=== PATIENT | female | born 1955 | race Two or more races ===

== ENCOUNTER 2023-08-07 12:59 | Inpatient (IN) | payer OTHER ==
[~2023-08-07] VITALS: Ht 152.4 cm; Wt 45.4 kg
[2023-08-07] MEDS ORDERED: CHLORTHALIDONE25 MG PO (14:03)
[2023-08-07] MEDS ORDERED: METOPROLOL SUC100 MG PO (14:03)
[2023-08-07] MEDS ORDERED: CELLCEPT250 MG PO (14:03)
[2023-08-07] MEDS ORDERED: ATORVASTATIN CA20 MG PO (14:04)
[2023-08-07 15:34] LABS: HEMATOCRIT 35.3 % (36.0-45.00); HEMOGLOBIN 11.8 g/dL (12.0-15.00); MEAN CELL VOLUME 84.6 fL (80.00-100.00); MEAN CORPUSCULAR HEMOGLOBIN 28.3 pg (27.00-32.0); MEAN CORPUSCULAR HGB CONC 33.5 g/dl (32.0-36.0); RED BLOOD COUNT 4.18 M/uL (4.00-6.00); RED CELL DISTRIBUTION WIDTH 14.7 % (11.5-14.5)
[2023-08-07 15:36] LABS: PLATELET COUNT 107 K/uL (150-450)
[2023-08-07 15:56] LABS: CALCIUM 8.6 mg/dL (8.5-10.1); CREATININE SERUM 1.49 mg/dL (0.55-1.02); GFR 34.6
[2023-08-07 16:03] LABS: POTASSIUM 2.46 mEq/L (3.5-5.1)
[2023-08-07 18:12] LABS: MAGNESIUM 2.2 mg/dL (1.8-2.4); PHOSPHOROUS 3.4 mg/dL (2.5-4.9)
[2023-08-07 20:31] LABS: PH,URINE 5.5 (5.0-8.0); URINE APPEARANCE Cloudy; URINE BILIRRUBIN Negative (NEGATIVE); URINE BLOOD Large; URINE COLOR Yellow; URINE GLUCOSE Negative (NEGATIVE); URINE LEUKOCYTE Negative; URINE NITRATE Negative; URINE PROTEIN 30 (NEGATIVE); URINE UROBILINOGEN 0.2 E.U./dl
[2023-08-07 20:35] LABS: URINE BACTERIA 15.1 uL (0.0-1933); URINE EPITHELIAL CELLS 17.1 uL (0.0-38.8); URINE RBC 37.3 uL (0.0-20.8); URINE WBC 7.4 uL (0.0-23.2)
[2023-08-07 20:45] LABS: URINE CRYSTALS FEW /HPF; URINE MUCUS SCANT
[2023-08-08 01:37] LABS: INR 1.05; PARTIAL THROMBOPLASTIN TIME 31.4 SECONDS (22.0-34.0)
[2023-08-08 08:21] LABS: HEMATOCRIT 33.4 % (36.0-45.00); HEMOGLOBIN 11.2 g/dL (12.0-15.00); MEAN CELL VOLUME 84.9 fL (80.00-100.00); MEAN CORPUSCULAR HEMOGLOBIN 28.5 pg (27.00-32.0); MEAN CORPUSCULAR HGB CONC 33.6 g/dl (32.0-36.0); RED BLOOD COUNT 3.94 M/uL (4.00-6.00); RED CELL DISTRIBUTION WIDTH 15.1 % (11.5-14.5)
[2023-08-08 08:29] LABS: ABG PH 7.489 (7.35-7.45); ABG PO2 81.2 mmHg (80-100); ABG pCO2 31.9 mmHg (35-45); BASE EXCESS 1.2 mmol/l; BICARBONATE 23.7 mmol/l (23-25); SaO2 96.9 %; Tco2 24.7 mmol/l; allen test SATISFACTORY; o2 32 %; puncture site RADIAL RIGHT
[2023-08-08 09:06] LABS: BILIRUBIN TOTAL 1.09 mg/dL (0.3-1.2); CALCIUM 7.6 mg/dL (8.5-10.1); CREATININE SERUM 0.8 mg/dL (0.55-1.02); GFR 70.91; GLOBULINA 3.5 G/DL (2.4-3.5); TOTAL PROTEIN 5.5 gm/dL (6.4-8.2)
[2023-08-08 09:18] LABS: PLATELET COUNT 85 K/uL (150-450)
[2023-08-08 09:51] LABS: POTASSIUM 2.36 mEq/L (3.5-5.1)
[2023-08-09 08:36] LABS: HEMATOCRIT 30.7 % (36.0-45.00); HEMOGLOBIN 10.2 g/dL (12.0-15.00); MEAN CELL VOLUME 84.3 fL (80.00-100.00); MEAN CORPUSCULAR HEMOGLOBIN 28.1 pg (27.00-32.0); MEAN CORPUSCULAR HGB CONC 33.3 g/dl (32.0-36.0); RED BLOOD COUNT 3.65 M/uL (4.00-6.00); RED CELL DISTRIBUTION WIDTH 15.2 % (11.5-14.5)
[2023-08-09 09:20] LABS: PLATELET COUNT 91 K/uL (150-450)
[2023-08-09 11:14] LABS: CORTISOL 32.84 ug/dl
[2023-08-09 15:12] LABS: CALCIUM 7.7 mg/dL (8.5-10.1); CREATININE SERUM 0.8 mg/dL (0.55-1.02); GFR 70.91
[2023-08-09 15:21] LABS: POTASSIUM 2.27 mEq/L (3.5-5.1)
[2023-08-09 17:54] LABS: ALBUMIN 1.8 gm/dL (3.4-5.0); BILIRUBIN TOTAL 0.53 mg/dL (0.3-1.2); CALCIUM 7.6 mg/dL (8.5-10.1); CREATININE SERUM 0.82 mg/dL (0.55-1.02); GFR 68.92; GLOBULINA 3.6 G/DL (2.4-3.5); MAGNESIUM 1.8 mg/dL (1.8-2.4); TOTAL PROTEIN 5.4 gm/dL (6.4-8.2)
[2023-08-09 18:05] LABS: POTASSIUM 2.07 mEq/L (3.5-5.1)
[2023-08-09 21:49] LABS: PH,URINE 5.5 (5.0-8.0); URINE APPEARANCE Cloudy; URINE BILIRRUBIN Negative (NEGATIVE); URINE BLOOD Moderate; URINE COLOR Dark Yellow; URINE GLUCOSE Negative (NEGATIVE); URINE LEUKOCYTE Negative; URINE NITRATE Negative; URINE UROBILINOGEN 0.2 E.U./dl
[2023-08-09 21:52] LABS: URINE BACTERIA 30.2 uL (0.0-1933); URINE EPITHELIAL CELLS 30.6 uL (0.0-38.8); URINE WBC 12.6 uL (0.0-23.2)
[2023-08-09 22:06] LABS: URINE PROTEIN 100 (NEGATIVE)
[2023-08-09 22:07] LABS: URINE MUCUS SCANT
[2023-08-09 22:08] LABS: EOSINOPHILS,URINE NONE EOS SEEN; URINE CRYSTALS MODERATE /HPF
[2023-08-10 07:29] LABS: HEMATOCRIT 31.8 % (36.0-45.00); HEMOGLOBIN 10.6 g/dL (12.0-15.00); MEAN CELL VOLUME 84.1 fL (80.00-100.00); MEAN CORPUSCULAR HGB CONC 33.3 g/dl (32.0-36.0); RED BLOOD COUNT 3.78 M/uL (4.00-6.00); RED CELL DISTRIBUTION WIDTH 15.2 % (11.5-14.5)
[2023-08-10 07:54] LABS: ALBUMIN 1.7 gm/dL (3.4-5.0); BILIRUBIN TOTAL 0.67 mg/dL (0.3-1.2); CALCIUM 7.6 mg/dL (8.5-10.1); CREATININE SERUM 0.72 mg/dL (0.55-1.02); GFR 80.08; GLOBULINA 3.6 G/DL (2.4-3.5); MAGNESIUM 2.4 mg/dL (1.8-2.4); TOTAL PROTEIN 5.3 gm/dL (6.4-8.2)
[2023-08-10 08:52] LABS: ERYTHROCYTE SEDIMENTATION RATE > 130 mm/hr
[2023-08-10 08:58] LABS: FECAL LEUKOCYTES NEGATIVE (NEGATIVE)
[2023-08-10 09:07] LABS: COMPLEMENT C3 105 mg/dL (82-167); COMPLEMENT C4 12 mg/dL (12-38)
[2023-08-10 09:07] LABS: C-REACTIVE PROTEIN 30.7 MG/DL (0.00-0.29); PHOSPHOROUS 1.4 mg/dL (2.5-4.9); POTASSIUM 2.81 mEq/L (3.5-5.1)
[2023-08-10 09:37] LABS: PLATELET COUNT 93 K/uL (150-450)
[2023-08-10 13:06] LABS: DNA AB DOUBLE STRABDED 21 IU/mL (0-9)
[2023-08-11 16:11] LABS: ALBUMIN 1.4 gm/dL (3.4-5.0); BILIRUBIN TOTAL 0.4 mg/dL (0.3-1.2); BILIRUBIN,CONJUGATED 0.23 mg/dL (0.0-0.2); BILIRUBIN,UNCONJUGATED 0.17 mg/dL (0.0-0.6); CALCIUM 7.4 mg/dL (8.5-10.1); CREATININE SERUM 0.61 mg/dL (0.55-1.02); GFR 96.96; MAGNESIUM 1.7 mg/dL (1.8-2.4); PHOSPHOROUS 2.3 mg/dL (2.5-4.9); POTASSIUM 3.43 mEq/L (3.5-5.1); TOTAL PROTEIN 4.9 gm/dL (6.4-8.2)
[2023-08-12 06:37] LABS: HEMATOCRIT 26.5 % (36.0-45.00); HEMOGLOBIN 9.2 g/dL (12.0-15.00); MEAN CELL VOLUME 83.8 fL (80.00-100.00); MEAN CORPUSCULAR HEMOGLOBIN 29.1 pg (27.00-32.0); MEAN CORPUSCULAR HGB CONC 34.7 g/dl (32.0-36.0); RED BLOOD COUNT 3.17 M/uL (4.00-6.00); RED CELL DISTRIBUTION WIDTH 16.1 % (11.5-14.5)
[2023-08-12 06:57] LABS: PLATELET COUNT 71 K/uL (150-450)
[2023-08-12 07:13] LABS: ERYTHROCYTE SEDIMENTATION RATE 114 mm/hr
[2023-08-12 07:38] LABS: ALBUMIN 1.3 gm/dL (3.4-5.0); BILIRUBIN TOTAL 0.45 mg/dL (0.3-1.2); CALCIUM 7.6 mg/dL (8.5-10.1); CREATININE SERUM 0.62 mg/dL (0.55-1.02); GFR 95.16; MAGNESIUM 1.5 mg/dL (1.8-2.4); PHOSPHOROUS 3.1 mg/dL (2.5-4.9); TOTAL PROTEIN 4.3 gm/dL (6.4-8.2)
[2023-08-12 08:07] LABS: C-REACTIVE PROTEIN 22.6 MG/DL (0.00-0.29); POTASSIUM 2.98 mEq/L (3.5-5.1)
[2023-08-13 07:19] LABS: HEMATOCRIT 26.1 % (36.0-45.00); HEMOGLOBIN 9.1 g/dL (12.0-15.00); MEAN CELL VOLUME 84.1 fL (80.00-100.00); MEAN CORPUSCULAR HEMOGLOBIN 29.2 pg (27.00-32.0); MEAN CORPUSCULAR HGB CONC 34.7 g/dl (32.0-36.0); RED BLOOD COUNT 3.11 M/uL (4.00-6.00); RED CELL DISTRIBUTION WIDTH 16.1 % (11.5-14.5)
[2023-08-13 07:27] LABS: PLATELET COUNT 69 K/uL (150-450)
[2023-08-13 07:39] LABS: ALBUMIN 1.2 gm/dL (3.4-5.0); BILIRUBIN TOTAL 0.5 mg/dL (0.3-1.2); CALCIUM 7.5 mg/dL (8.5-10.1); CREATININE SERUM 0.52 mg/dL (0.55-1.02); GFR 116.58; GLOBULINA 3.1 G/DL (2.4-3.5); MAGNESIUM 1.7 mg/dL (1.8-2.4); POTASSIUM 3.82 mEq/L (3.5-5.1); TOTAL PROTEIN 4.3 gm/dL (6.4-8.2)
[2023-08-13 15:08] LABS: anti MPO AB 0.5 units (0.0-0.9); anti pr3 < 0.2 units (0.0-0.9); c anca <1:20 titer (Neg:<1:20); p anca <1:20 titer (Neg:<1:20)
[2023-08-13 15:19] LABS: ALBUMIN 1.3 gm/dL (3.4-5.0); BILIRUBIN TOTAL 0.36 mg/dL (0.3-1.2); CALCIUM 7.3 mg/dL (8.5-10.1); CREATININE SERUM 0.61 mg/dL (0.55-1.02); GFR 96.96; GLOBULINA 3.3 G/DL (2.4-3.5); MAGNESIUM 2.2 mg/dL (1.8-2.4); POTASSIUM 3.93 mEq/L (3.5-5.1); TOTAL PROTEIN 4.6 gm/dL (6.4-8.2)
[2023-08-13 15:49] LABS: PHOSPHOROUS 1.8 mg/dL (2.5-4.9)
[2023-08-14 15:20] LABS: CALCIUM 7.5 mg/dL (8.5-10.1); CREATININE SERUM 0.51 mg/dL (0.55-1.02); GFR 119.22; PHOSPHOROUS 2.7 mg/dL (2.5-4.9); POTASSIUM 4.12 mEq/L (3.5-5.1)
[2023-08-15 04:49] LABS: HEMATOCRIT 26.3 % (36.0-45.00); MEAN CELL VOLUME 84.6 fL (80.00-100.00); RED CELL DISTRIBUTION WIDTH 16.4 % (11.5-14.5)
[2023-08-15 04:50] LABS: HEMOGLOBIN 8.9 g/dL (12.0-15.00); MEAN CORPUSCULAR HEMOGLOBIN 28.7 pg (27.00-32.0); PLATELET COUNT 60 K/uL (150-450)
[2023-08-15 05:02] LABS: ALBUMIN 1.1 gm/dL (3.4-5.0); BILIRUBIN TOTAL 0.43 mg/dL (0.3-1.2); CALCIUM 7.1 mg/dL (8.5-10.1); GFR 219.93; GLOBULINA 2.8 G/DL (2.4-3.5); MAGNESIUM 1.6 mg/dL (1.8-2.4); PHOSPHOROUS 2.4 mg/dL (2.5-4.9); POTASSIUM 5.66 mEq/L (3.5-5.1); TOTAL PROTEIN 3.9 gm/dL (6.4-8.2)
[2023-08-15 05:03] LABS: CREATININE SERUM 0.3 mg/dL (0.55-1.02)
[2023-08-16 19:49] LABS: TP PLEURAL FLUID 1.9 g/dl
[2023-08-16 20:22] LABS: MONONUCLEAR 99 %; PLEURAL FLUID APPEARANCE CLOUDY; PLEURAL FLUID COLOR YELLOW; POLYMORPHONUCLEAR 1 %
[2023-08-17 08:05] LABS: ALBUMIN 1.2 gm/dL (3.4-5.0); BILIRUBIN TOTAL 0.45 mg/dL (0.3-1.2); CALCIUM 7.1 mg/dL (8.5-10.1); GLOBULINA 2.7 G/DL (2.4-3.5); TOTAL PROTEIN 3.9 gm/dL (6.4-8.2)
[2023-08-17 08:43] LABS: HEMATOCRIT 26.4 % (36.0-45.00); MEAN CELL VOLUME 84.8 fL (80.00-100.00); MEAN CORPUSCULAR HGB CONC 34.2 g/dl (32.0-36.0); RED BLOOD COUNT 3.12 M/uL (4.00-6.00); RED CELL DISTRIBUTION WIDTH 16.1 % (11.5-14.5)
[2023-08-17 09:13] LABS: GFR 259.42
[2023-08-17 09:15] LABS: POTASSIUM 2.96 mEq/L (3.5-5.1)
[2023-08-17 10:02] LABS: CREATININE SERUM 0.26 mg/dL (0.55-1.02)
[2023-08-17 10:44] LABS: PLATELET COUNT 68 K/uL (150-450)
[2023-08-17 11:07] LABS: campy Final report (.)
[2023-08-18 08:13] LABS: HEMATOCRIT 26.8 % (36.0-45.00); MEAN CELL VOLUME 85.6 fL (80.00-100.00); MEAN CORPUSCULAR HGB CONC 33.4 g/dl (32.0-36.0); RED BLOOD COUNT 3.13 M/uL (4.00-6.00); RED CELL DISTRIBUTION WIDTH 16.1 % (11.5-14.5)
[2023-08-18 08:23] LABS: ALBUMIN 1.3 gm/dL (3.4-5.0); BILIRUBIN TOTAL 0.53 mg/dL (0.3-1.2); CALCIUM 7.3 mg/dL (8.5-10.1); GLOBULINA 2.8 G/DL (2.4-3.5); PHOSPHOROUS 2.6 mg/dL (2.5-4.9); POTASSIUM 3.84 mEq/L (3.5-5.1); TOTAL PROTEIN 4.1 gm/dL (6.4-8.2)
[2023-08-18 08:32] LABS: CREATININE SERUM 0.25 mg/dL (0.55-1.02); GFR 271.43; MAGNESIUM 1.4 mg/dL (1.8-2.4)
[2023-08-18 09:11] LABS: HEMOGLOBIN 8.9 g/dL (12.0-15.00); MEAN CORPUSCULAR HEMOGLOBIN 28.4 pg (27.00-32.0); PLATELET COUNT 78 K/uL (150-450)
[2023-08-20 06:57] LABS: CALCIUM 7.7 mg/dL (8.5-10.1); GFR 228.7; MAGNESIUM 1.6 mg/dL (1.8-2.4); POTASSIUM 3.39 mEq/L (3.5-5.1)
[2023-08-20 07:22] LABS: CREATININE SERUM 0.29 mg/dL (0.55-1.02)
[2023-08-20 07:29] LABS: HEMATOCRIT 25.7 % (36.0-45.00); MEAN CELL VOLUME 85.7 fL (80.00-100.00); MEAN CORPUSCULAR HEMOGLOBIN 28.4 pg (27.00-32.0); MEAN CORPUSCULAR HGB CONC 33.3 g/dl (32.0-36.0); RED BLOOD COUNT 2.99 M/uL (4.00-6.00); RED CELL DISTRIBUTION WIDTH 15.8 % (11.5-14.5)
[2023-08-20 07:30] LABS: PLATELET COUNT 91 K/uL (150-450)
[2023-08-20 07:31] LABS: HEMOGLOBIN 8.5 g/dL (12.0-15.00)
[2023-08-21 08:36] LABS: CALCIUM 7.9 mg/dL (8.5-10.1); GFR 248.36; MAGNESIUM 1.7 mg/dL (1.8-2.4); PHOSPHOROUS 3.3 mg/dL (2.5-4.9); POTASSIUM 3.59 mEq/L (3.5-5.1)
[2023-08-21 08:45] LABS: CREATININE SERUM 0.27 mg/dL (0.55-1.02)
[2023-08-21 15:15] LABS: ABG PH 7.476 (7.35-7.45); ABG PO2 60.2 mmHg (80-100); ABG pCO2 44.4 mmHg (35-45); BASE EXCESS 7.4 mmol/l; Tco2 33.3 mmol/l; allen test SATISFACTORY; o2 21 %; puncture site RADIAL RIGHT
[2023-08-22 13:24] LABS: ALBUMIN 1.4 gm/dL (3.4-5.0); BILIRUBIN TOTAL 0.52 mg/dL (0.3-1.2); CREATININE SERUM 0.38 mg/dL (0.55-1.02); GFR 167.42; GLOBULINA 3.1 G/DL (2.4-3.5); MAGNESIUM 1.9 mg/dL (1.8-2.4); POTASSIUM 3.58 mEq/L (3.5-5.1); TOTAL PROTEIN 4.5 gm/dL (6.4-8.2)
[2023-08-22 17:27] LABS: HEMATOCRIT 26.4 % (36.0-45.00); MEAN CELL VOLUME 85.8 fL (80.00-100.00); MEAN CORPUSCULAR HEMOGLOBIN 29.1 pg (27.00-32.0); RED BLOOD COUNT 3.08 M/uL (4.00-6.00); RED CELL DISTRIBUTION WIDTH 15.6 % (11.5-14.5)
[2023-08-22 17:28] LABS: PLATELET COUNT 92 K/uL (150-450)
[2023-08-23] MEDS ORDERED: INTESTINEX680 M1 PO (09:30)
== END 2023-08-23 14:36 | disposition designated cancer center or children's hospital (05) | DRG 194 ==
LOC: ER 12:59 → ICU-2 21:46 → ICU 21:46 → MEDJ 08-15 20:31
PROVIDERS: General Practice; Internal Medicine; Internal Medicine Infectious Disease; Nurse Practitioner Family; Radiology Vascular & Interventional Radiology; ADMIT Internal Medicine; ATTEND Internal Medicine
PROC: BW21ZZZ Computerized Tomography (CT Scan) of Abdomen and Pelvis (ICD-10-PCS; principal; 2023-08-07)
PROC: BB24ZZZ Computerized Tomography (CT Scan) of Bilateral Lungs (ICD-10-PCS; 2023-08-07)
PROC: 02HV33Z Insertion of Infusion Device into Superior Vena Cava, Percutaneous Approach (ICD-10-PCS; 2023-08-08)
PROC: B246ZZZ Ultrasonography of Right and Left Heart (ICD-10-PCS; 2023-08-09)
PROC: 3E0F7GC Introduction of Other Therapeutic Substance into Respiratory Tract, Via Natural or Artificial Opening (ICD-10-PCS; 2023-08-09)
PROC: 0W9B3ZZ Drainage of Left Pleural Cavity, Percutaneous Approach (ICD-10-PCS; 2023-08-16)
PROC: 4A12X4Z Monitoring of Cardiac Electrical Activity, External Approach (ICD-10-PCS; 2023-08-16)
DX: J16.8 Pneumonia due to other specified infectious organisms (principal); A09 Infectious gastroenteritis and colitis, unspecified; E87.1 Hypo-osmolality and hyponatremia; N17.8 Other acute kidney failure; E87.6 Hypokalemia; E86.0 Dehydration; E78.49 Other hyperlipidemia; A48.1 Legionnaires' disease; E83.42 Hypomagnesemia; D69.6 Thrombocytopenia, unspecified

== ENCOUNTER 2024-12-01 17:48 | Inpatient (IN) | payer OTHER ==
[~2024-12-01] VITALS: Ht 152.4 cm; Wt 60.3 kg
[~2024-12-01 17:48] MED LIST: ATORVASTATIN CA20 MG PO; CELLCEPT250 MG PO; CHLORTHALIDONE25 MG PO; INTESTINEX680 M1 PO; METOPROLOL SUC100 MG PO
--- NOTE | 2024-12-01 18:32 | NUR ---
FEMINA REFIERE MALESTAR GENERAL DESDE TRISTAN.
--- NOTE | 2024-12-01 20:17 | NUR ---
S EREALIZA LAB Y SE ORIENTA A PTE QUIEN REFIERE ENTENDER Y ACEPTAR
[2024-12-01 20:52] LABS: HEMOGLOBIN 12.2 g/dL (12.0-15.00); MEAN CELL VOLUME 87.7 fL (80.00-100.00); MEAN CORPUSCULAR HEMOGLOBIN 28.9 pg (27.00-32.0); MEAN CORPUSCULAR HGB CONC 32.9 g/dl (32.0-36.0); RED BLOOD COUNT 4.22 M/uL (4.00-6.00); RED CELL DISTRIBUTION WIDTH 14.3 % (11.5-14.5)
[2024-12-01 20:53] LABS: PLATELET COUNT 107 K/uL (150-450)
[2024-12-01 21:13] LABS: ALBUMIN 3.2 gm/dL (3.4-5.0); BILIRUBIN TOTAL 0.86 mg/dL (0.3-1.2); CALCIUM 9.2 mg/dL (8.5-10.1); CREATININE SERUM 0.7 mg/dL (0.55-1.02); GFR 82.49; GLOBULINA 4.7 G/DL (2.4-3.5); TOTAL PROTEIN 7.9 gm/dL (6.4-8.2)
[2024-12-01] MEDS ORDERED: OSEL75CA PO (21:20)
[2024-12-01 21:25] LABS: POTASSIUM 2.56 mEq/L (3.5-5.1)
[2024-12-01] MEDS ORDERED: POTASSIUM CHLORIDE 10 MEQ CAPSULE PO STA (21:31)
--- NOTE | 2024-12-01 22:29 | NUR ---
SE LLAMA A SUPERVISORA HUANG PARA NOTIFICARLE SOBRE TX PENDIENTE. SE ENVIO ORDEN A FARMACIA.
[2024-12-01] MEDS ORDERED: ACETAMINOPHEN 500 MG GEL..CAP PO PRN (22:45)
[2024-12-01] MEDS ORDERED: POTASSIUM CHLORIDE IN 0.9%NACL 1,000 ML IV ONE (22:45)
[2024-12-01] MEDS ORDERED: 0.9 % SODIUM CHLORIDE 1,000 ML IV SCH (22:45)
[2024-12-02 03:52] LABS: MAGNESIUM 1.6 mg/dL (1.8-2.4); PHOSPHOROUS 2.6 mg/dL (2.5-4.9)
[2024-12-02 04:00] VITALS: BP 146/68
[2024-12-02 04:57] LABS: URINE APPEARANCE Error; URINE BILIRRUBIN Negative (NEGATIVE); URINE BLOOD Moderate; URINE COLOR Yellow; URINE GLUCOSE Negative (NEGATIVE); URINE KETONE Negative (NEGATIVE); URINE LEUKOCYTE Negative; URINE NITRATE Negative; URINE PROTEIN Negative (NEGATIVE); URINE UROBILINOGEN 0.2 E.U./dl
[2024-12-02 04:58] LABS: URINE BACTERIA 14.6 uL (0.0-1933); URINE EPITHELIAL CELLS 9.7 uL (0.0-38.8); URINE RBC 39.4 uL (0.0-20.8); URINE WBC 6.7 uL (0.0-23.2)
[2024-12-02 05:00] LABS: INR 0.99; PARTIAL THROMBOPLASTIN TIME 24.5 SECONDS (22.0-34.0); PROTHROMBIN TIME 10.8 SECONDS (9.0-11.5)
[2024-12-02 05:01] LABS: URINE CAST 0.14 uL (0.0-1.40)
[2024-12-02] MEDS ORDERED: POTASSIUM CHLORIDE IN 0.9%NACL 1,000 ML IV NR (07:45)
[2024-12-02] MEDS ORDERED: ONDANSETRON HCL 4 MG in 0.9 % SODIUM CHLORIDE 50 ML IV PRN (08:00)
[2024-12-02 08:55] VITALS: BP 145/68; O2SAT 98
[2024-12-02] MEDS ORDERED: PANTOPRAZOLE SODIUM 40 MG/VIAL VIAL IV SCH (09:00)
[2024-12-02] MEDS ORDERED: OSELTAMIVIR PHOSPHATE 75 MG CAPSULE PO SCH (09:00)
[2024-12-02] MEDS ORDERED: MAGNESIUM SULFATE IN WATER 50 ML IV NR (09:00)
[2024-12-02] MEDS ORDERED: POTASSIUM BICARBONATE/CIT AC 25 MEQ TABLET.EFF PO NR (09:00)
[2024-12-02 17:27] VITALS: BP 151/66; O2SAT 98
[2024-12-02 18:59] LABS: FECAL LEUKOCYTES NEGATIVE (NEGATIVE)
[2024-12-03 03:02] VITALS: BP 160/81
[2024-12-03 06:53] LABS: HEMATOCRIT 32.2 % (36.0-45.00); HEMOGLOBIN 11.1 g/dL (12.0-15.00); MEAN CELL VOLUME 85.9 fL (80.00-100.00); MEAN CORPUSCULAR HEMOGLOBIN 29.7 pg (27.00-32.0); MEAN CORPUSCULAR HGB CONC 34.6 g/dl (32.0-36.0); RED BLOOD COUNT 3.75 M/uL (4.00-6.00); RED CELL DISTRIBUTION WIDTH 14.2 % (11.5-14.5)
[2024-12-03 07:15] LABS: ALBUMIN 2.7 gm/dL (3.4-5.0); BILIRUBIN TOTAL 0.5 mg/dL (0.3-1.2); CALCIUM 8.6 mg/dL (8.5-10.1); CREATININE SERUM 0.48 mg/dL (0.55-1.02); GFR 127.49; GLOBULINA 3.4 G/DL (2.4-3.5); MAGNESIUM 1.6 mg/dL (1.8-2.4); PLATELET COUNT 98 K/uL (150-450); POTASSIUM 3.58 mEq/L (3.5-5.1); TOTAL PROTEIN 6.1 gm/dL (6.4-8.2)
[2024-12-03 08:41] VITALS: BP 157/76
[2024-12-03] MEDS ORDERED: OSEL75CA PO (09:03)
[2024-12-03] MEDS ORDERED: PANTOPRAZOLE SO40 MG PO (09:05)
[2024-12-03] MEDS ORDERED: MAGNESIUM SULFATE IN WATER 50 ML IV NR (09:30)
[2024-12-03] MEDS ORDERED: METOPROLOL SUCCINATE 100 MG TAB.SR.24H PO NR (09:30)
== END 2024-12-03 13:35 | disposition home or self-care (01) | DRG 866 ==
LOC: ER 17:50 → MEDI 22:44 → MEDJ 12-02 09:58
PROVIDERS: General Practice; Internal Medicine Infectious Disease; ADMIT Internal Medicine; ATTEND Internal Medicine
DX: J10.2 Influenza due to other identified influenza virus with gastrointestinal manifestations (principal); E87.6 Hypokalemia; E86.0 Dehydration; E78.5 Hyperlipidemia, unspecified; M32.9 Systemic lupus erythematosus, unspecified; I10 Essential (primary) hypertension; D69.6 Thrombocytopenia, unspecified